=== PATIENT | male | born 1955 | race Caucasian/White ===

== ENCOUNTER 2022-02-04 12:58 | Inpatient (IN) | payer BC ==
[2022-02-04 15:34] VITALS: BMI 26.1
[2022-02-04] MEDS ORDERED: Acetaminophen 325 MG TAB PO PRN (16:20)
[2022-02-04] MEDS ORDERED: Calcium Carbonate 500 MG ChewTAB PO PRN (16:20)
[2022-02-04] MEDS ORDERED: HYDROcodone/Acetaminophen 5/325 mg Tablet PO PRN (16:26)
[2022-02-04] MEDS ORDERED: Electrolyte Replacement Protocol 1 EACH FS SCH (16:30)
[2022-02-04] MEDS ORDERED: Vancomycin 1 GM in Premix Bag 1 BAG IVPB SCH (16:30)
[2022-02-04] MEDS: metroNIDAZOLE 500 MG in Premix Bag 1 BAG IVPB SCH (16:53)
[2022-02-04] MEDS: Vancomycin 1.5 GRAM/300 ML BAG 1.5 GM in Premix Bag 1 BAG IVPB SCH (18:25)
[2022-02-04] MEDS: Metoprolol Tartrate 25 MG TAB PO SCH (20:46)
[2022-02-04 21:41] LABS: SARS-CoV-2 PCR by NAA Not Detected (NotDetected)
[2022-02-05] MEDS: metroNIDAZOLE 500 MG in Premix Bag 1 BAG IVPB SCH ×3 (00:14→17:55)
[2022-02-05] MEDS: Cefepime 2 GM in Sodium Chloride 0.9% 100 ML IVPB SCH ×2 (00:14→13:14)
[2022-02-05] MEDS: Vancomycin 1.5 GRAM/300 ML BAG 1.5 GM in Premix Bag 1 BAG IVPB SCH ×2 (05:45→18:58)
[2022-02-05 05:50] LABS: #Eosinphils 0.1 thou/uL (0.0-0.7); #Lymphocytes 1.4 thou/uL (1.20-3.40); #Monocytes 0.5 thou/uL (0.11-0.59); #Neutrophils 6.1 thou/uL (1.40-6.50); %Basophils 0.2 % (0.0-1.0); %Eosinophils 1.1 % (0.0-10.0); %Monocytes 6.5 % (0.0-10.0); %Neutrophils 75.2 % (42.0-75.0); Hemoglobin 11.2 g/dL (14.0-18.0); Mean Corpuscular HGB CONC 32.9 g/dL (32.0-36.0); Mean Corpuscular Hemoglobin 31.6 pg (27.0-31.0); Mean Platelet Volume 7.5 fL (7.4-10.4); Platelet Count 266 thou/uL (130-400); RBC Distribution Width 11.8 % (11.5-14.5); Red Blood Cell (RBC) Count 3.56 mill/uL (4.70-6.10); White Blood Cell (WBC) Count 8.1 thou/uL (4.8-10.8)
[2022-02-05 06:18] LABS: ALT (SGPT) 69 U/L (8-55); AST (SGOT) 48 U/L (5-34); Albumin 3.3 g/dL (3.4-4.8); Alkaline Phosphatase 255 U/L (40-110); Anion Gap 12 mmol/L (10-20); BUN (Urea Nitrogen) 11 mg/dL (8.4-25.7); Bilirubin, Total 0.8 mg/dL (0.2-1.2); Calc. Creatinine Clearance 108 mL/min (70-130); Calcium 8.7 mg/dL (7.8-10.44); Carbon Dioxide 23 mmol/L (23-31); Chloride 107 mmol/L (98-107); Globulin 3.3 g/dL (2.4-3.5); Glucose 98 mg/dL (80-115); Magnesium 2.1 mg/dL (1.6-2.6); Protein, Total 6.6 g/dL (5.8-8.1); Sodium 138 mmol/L (136-145)
[2022-02-05] MEDS: Saccharomyces boulardii 250 MG CAP PO SCH (08:32)
[2022-02-05] MEDS: Metoprolol Tartrate 25 MG TAB PO SCH ×2 (08:32→20:02)
[2022-02-05] MEDS: Amlodipine 10 MG TAB PO SCH (08:32)
[2022-02-06] MEDS: Cefepime 2 GM in Sodium Chloride 0.9% 100 ML IVPB SCH ×2 (02:49→12:06)
[2022-02-06] MEDS: metroNIDAZOLE 500 MG in Premix Bag 1 BAG IVPB SCH ×3 (02:49→17:07)
[2022-02-06 05:59] LABS: Vancomycin, Trough 14.8 ug/mL
[2022-02-06] MEDS: Vancomycin 1.5 GRAM/300 ML BAG 1.5 GM in Premix Bag 1 BAG IVPB SCH ×2 (06:14→18:16)
[2022-02-06] MEDS: Amlodipine 10 MG TAB PO SCH (08:16)
[2022-02-06] MEDS: Saccharomyces boulardii 250 MG CAP PO SCH (08:16)
[2022-02-06] MEDS: Metoprolol Tartrate 25 MG TAB PO SCH ×2 (08:16→19:46)
[2022-02-06] MEDS: Ibuprofen 200 MG TAB PO PRN ×2 (12:06→19:46)
[2022-02-07] MEDS: Cefepime 2 GM in Sodium Chloride 0.9% 100 ML IVPB SCH (00:48)
[2022-02-07] MEDS: metroNIDAZOLE 500 MG in Premix Bag 1 BAG IVPB SCH ×2 (01:06→09:19)
[2022-02-07] MEDS: Vancomycin 1.5 GRAM/300 ML BAG 1.5 GM in Premix Bag 1 BAG IVPB SCH (05:26)
[2022-02-07 06:50] LABS: #Basophils 0.1 thou/uL (0.0-0.2); #Eosinphils 0.2 thou/uL (0.0-0.7); #Lymphocytes 1.3 thou/uL (1.20-3.40); #Monocytes 0.4 thou/uL (0.11-0.59); %Basophils 1.2 % (0.0-1.0); %Eosinophils 3.3 % (0.0-10.0); %Lymphocytes 21.9 % (21.0-51.0); %Neutrophils 66.6 % (42.0-75.0); Hemoglobin 11.5 g/dL (14.0-18.0); Mean Corpuscular HGB CONC 32.9 g/dL (32.0-36.0); Mean Corpuscular Volume 94.3 fL (78.0-98.0); Mean Platelet Volume 6.7 fL (7.4-10.4); Platelet Count 368 thou/uL (130-400); Red Blood Cell (RBC) Count 3.71 mill/uL (4.70-6.10)
[2022-02-07 07:10] LABS: ALT (SGPT) 53 U/L (8-55); AST (SGOT) 42 U/L (5-34); Albumin 3.4 g/dL (3.4-4.8); Alkaline Phosphatase 236 U/L (40-110); Anion Gap 12 mmol/L (10-20); BUN (Urea Nitrogen) 14 mg/dL (8.4-25.7); Bilirubin, Total 0.9 mg/dL (0.2-1.2); Calc. Creatinine Clearance 124 mL/min (70-130); Calcium 8.7 mg/dL (7.8-10.44); Carbon Dioxide 24 mmol/L (23-31); Chloride 109 mmol/L (98-107); Globulin 3.4 g/dL (2.4-3.5); Glucose 111 mg/dL (80-115); Protein, Total 6.8 g/dL (5.8-8.1); Sodium 141 mmol/L (136-145)
[2022-02-07] MEDS: Metoprolol Tartrate 25 MG TAB PO SCH ×2 (09:19→19:51)
[2022-02-07] MEDS: Amlodipine 10 MG TAB PO SCH (09:19)
[2022-02-07] MEDS: Saccharomyces boulardii 250 MG CAP PO SCH (09:19)
[2022-02-07] MEDS: Ibuprofen 200 MG TAB PO PRN ×3 (09:19→22:51)
[2022-02-07] MEDS: Clindamycin 150 MG CAP PO SCH ×2 (11:51→19:51)
[2022-02-07] MEDS: Cephalexin 250 MG CAP PO SCH ×3 (12:28→22:51)
[2022-02-08] MEDS: Clindamycin 150 MG CAP PO SCH ×3 (05:12→17:53)
[2022-02-08] MEDS: Ibuprofen 200 MG TAB PO PRN ×2 (05:12→13:15)
[2022-02-08] MEDS: Cephalexin 250 MG CAP PO SCH ×3 (05:12→17:10)
[2022-02-08] MEDS: Metoprolol Tartrate 25 MG TAB PO SCH (08:25)
[2022-02-08] MEDS: Saccharomyces boulardii 250 MG CAP PO SCH (08:25)
[2022-02-08] MEDS: Amlodipine 10 MG TAB PO SCH (08:25)
[2022-02-08 17:58] VITALS: BP 127/79; TEMP 97.7
== END 2022-02-08 19:07 | disposition home or self-care (01) | DRG 872 ==
LOC: T4-A 14:43
PROVIDERS: ADMIT Hospitalist; ATTEND Emergency Medicine
DX: A41.9 Sepsis, unspecified organism (principal); L03.116 Cellulitis of left lower limb; Z20.822 Contact with and (suspected) exposure to COVID-19; G89.29 Other chronic pain; M54.50 Low back pain, unspecified; M89.8X6 Other specified disorders of bone, lower leg; N18.2 Chronic kidney disease, stage 2 (mild); D63.1 Anemia in chronic kidney disease; R74.8 Abnormal levels of other serum enzymes; I12.9 Hypertensive chronic kidney disease with stage 1 through stage 4 chronic kidney disease, or unspecified chronic kidney disease; Z88.0 Allergy status to penicillin; Z79.899 Other long term (current) drug therapy; Z79.82 Long term (current) use of aspirin; Z98.890 Other specified postprocedural states; Z83.3 Family history of diabetes mellitus
CPT/HCPCS: 36415; 80053; 80202; 83735; 85025; 93923; J0692; J3370; J3490; U0003; U0005